=== PATIENT | male | born 1965 | race African-American/Black ===

== ENCOUNTER 2016-03-06 17:15 | Observation (INO) | payer SELFPAY ==
[~2016-03-06] VITALS: Ht 177.8 cm; Wt 95.3 kg
[2016-03-06] MEDS ORDERED: ASPIRIN 81 MG CHEW TAB ONE (17:44)
[2016-03-06] MEDS ORDERED: NITROGLYCERIN SL 0.4 MG TAB SL ONE (18:34)
[2016-03-06] MEDS ORDERED: TEMAZEPAM 15 MG CAP PO PRN (20:15)
[2016-03-06] MEDS ORDERED: ONDANSETRON 4 MG VIAL IV PRN (20:15)
[2016-03-06] MEDS ORDERED: MORPHINE 2 MG/ML SYR IV PRN (20:15)
[2016-03-06] MEDS ORDERED: LORAZEPAM 0.5 MG TAB PO PRN (20:15)
[2016-03-06] MEDS ORDERED: DOCUSATE SOD 100 MG CAP PO PRN (20:15)
[2016-03-06] MEDS ORDERED: TRAMADOL 50 MG TAB PO PRN (20:15)
[2016-03-06] MEDS ORDERED: SODIUM CHLORIDE 0.9% FLUSH BAG 500 ML IV PRN (20:15)
[2016-03-06] MEDS ORDERED: SALINE FLUSH 10 ML FLUSH PRN (20:15)
[2016-03-06] MEDS ORDERED: NITROGLYCERIN 50 MG/250 ML IV PRN (20:15)
[2016-03-06] MEDS ORDERED: ASPIRIN 81 MG CHEW TAB PO ONE (20:20)
[2016-03-06] MEDS ORDERED: ACETAMINOPHEN 325 MG TAB PO PRN (20:20)
[2016-03-06 20:30] VITALS: BP_SYST 130; RESP 18; TEMP 97.4
[2016-03-06] MEDS: CEFTRIAXONE 1 GM in SODIUM CHLORIDE 0.9% 50 ML IV SCH (22:33)
[2016-03-06 23:57] VITALS: BP_SYST 132; RESP 18; TEMP 97.4
[2016-03-07] MEDS: NITROGLYCERIN SL 0.4 MG TAB SL PRN ×2 (01:55→04:27)
[2016-03-07 04:00] VITALS: BP_SYST 132
[2016-03-07 04:10] VITALS: BP_SYST 111; RESP 18; TEMP 97.6; BMI 30.1
[2016-03-07 07:59] VITALS: BP_SYST 132; RESP 18; TEMP 98.1
[2016-03-07] MEDS ORDERED: ASPIRIN EC 81 MG TAB PO SCH (08:00)
[2016-03-07] MEDS ORDERED: SALINE FLUSH 10 ML FLUSH SCH (08:00)
[2016-03-07] MEDS: CEFTRIAXONE 1 GM in SODIUM CHLORIDE 0.9% 50 ML IV SCH (09:31)
[2016-03-07 10:31] VITALS: BP_SYST 132; RESP 18; TEMP 98.1
[2016-03-07 10:35] VITALS: BP_SYST 132
== END 2016-03-07 09:35 | disposition home or self-care (01) ==
LOC: ENRESERVTM → ENRESERVDT → ER 17:15 → ENPENDDIS 19:22 → EMR 19:22 → PCU2 20:20
PROVIDERS: ADMIT Internal Medicine Cardiovascular Disease; ATTEND Internal Medicine Cardiovascular Disease
CPT/HCPCS: 36415; 71010; 80053; 80061; 82550; 82553; 83735; 84484; 85025; 85610; 85730; 93005